=== PATIENT | male | born 1955 | race Caucasian/White ===

== ENCOUNTER 2024-11-08 08:34 | Outpatient (CLI) | payer MEDICARE, SELFPAY | END 2024-11-08 08:35 | disposition home or self-care (01) | PROVIDERS: PCP Internal Medicine; Visit Provider Internal Medicine | DX: J44.9 Chronic obstructive pulmonary disease, unspecified (principal); Z13.6 Encounter for screening for cardiovascular disorders; Z12.5 Encounter for screening for malignant neoplasm of prostate | CPT/HCPCS: 80053; 80061; G0103 ==